=== PATIENT | female | born 1960 | race Caucasian/White ===

== ENCOUNTER 2017-09-30 16:27 | Emergency (ER) | payer BC ==
[~2017-09-30] VITALS: Ht 160 cm; Wt 71.0 kg
[~2017-09-30 16:27] MED LIST: PHEN-824 PO
[2017-09-30 18:04] VITALS: BP 131/73
[2017-09-30] MEDS ORDERED: IBUP-1984 PO (18:55)
== END 2017-09-30 19:10 | disposition home or self-care (01) ==
LOC: ER 16:27
DX: S70.01XA Contusion of right hip, initial encounter (principal); E11.9 Type 2 diabetes mellitus without complications; Z90.49 Acquired absence of other specified parts of digestive tract; Z98.890 Other specified postprocedural states; Z88.5 Allergy status to narcotic agent; W18.39XA Other fall on same level, initial encounter; Y93.E1 Activity, personal bathing and showering; Y92.89 Other specified places as the place of occurrence of the external cause; Y99.8 Other external cause status
CPT/HCPCS: 73502; 99284

== ENCOUNTER 2018-03-02 12:58 | Emergency (ER) | payer BC ==
[~2018-03-02] VITALS: Ht 160 cm; Wt 71.1 kg
[2018-03-02 13:02] VITALS: BP 138/85
[2018-03-02 13:21] LABS: CLARITY,URINE SLIGHTLY CLOUDY (Clear); COLOR,URINE YELLOW (Yellow); GLUCOSE, URINE NEGATIVE (Neg); KETONES,URINE TRACE mg/dl (Neg); LEUKOCYTE ESTERASE ,URINE SMALL (Neg); NITRITES, URINE NEGATIVE (Neg); OCCULT BLOOD,URINE TRACE-INTACT (Neg); PH,URINE 5.5 (4.8-8.0); PROTEIN,URINE TRACE mg/dl (Neg); UROBILINOGEN,URINE 0.2 E.U/dL (0.2-1.0)
[2018-03-02 13:22] LABS: UA COLLECTION TYPE CLN CATCH MIDSTREAM
[2018-03-02 13:41] LABS: MUCUS STRANDS MODERATE /LPF (Neg); SQUAMOUS EPITHELIAL CELL,UR MODERATE /LPF (FEW)
[2018-03-02] MEDS ORDERED: nitrofuran/nitrofuran macrocrysal 100 MG capsule PO ONE (13:45)
[2018-03-02] MEDS ORDERED: NITR100C6 PO (13:46)
[2018-03-02] MEDS ORDERED: PHEN-716 PO (13:46)
[2018-03-02 13:47] LABS: BACTERIA,URINE 2+ /HPF (Neg); RBC,URINE 0-2 /HPF (0-2); WBC,URINE 30-50 /HPF (0-4)
== END 2018-03-02 14:13 | disposition home or self-care (01) ==
LOC: ER 12:59
DX: N39.0 Urinary tract infection, site not specified (principal); E11.9 Type 2 diabetes mellitus without complications; R10.84 Generalized abdominal pain; Z88.5 Allergy status to narcotic agent; Z90.49 Acquired absence of other specified parts of digestive tract
CPT/HCPCS: 81001; 99283

== ENCOUNTER 2018-03-17 19:17 | Emergency (ER) | payer BC ==
[~2018-03-17] VITALS: Ht 160 cm; Wt 69.1 kg
[~2018-03-17 19:17] MED LIST changes: +NITR100C6 PO; +PHEN-716 PO
[2018-03-17 19:27] VITALS: BP 124/82
== END 2018-03-17 21:46 | disposition home or self-care (01) ==
LOC: ER 19:17
DX: S93.492A Sprain of other ligament of left ankle, initial encounter (principal); E11.9 Type 2 diabetes mellitus without complications; Z90.49 Acquired absence of other specified parts of digestive tract; Z98.890 Other specified postprocedural states; Z88.5 Allergy status to narcotic agent; W18.09XA Striking against other object with subsequent fall, initial encounter; Y93.89 Activity, other specified; Y92.89 Other specified places as the place of occurrence of the external cause; Y99.9 Unspecified external cause status
CPT/HCPCS: 73610; 73630; 99284